=== PATIENT | male | born 1985 | race African-American/Black ===

== ENCOUNTER 2025-02-08 20:20 | Emergency (ER) | payer OTHER ==
[~2025-02-08] VITALS: Ht 182.9 cm; Wt 181.4 kg
[2025-02-08] MEDS ORDERED: HYDROcodone 7.5-APAP 325 TAB PO ONE (21:20)
[2025-02-08] MEDS ORDERED: Ketorolac Tromethamine 30mg Vial IM ONE (21:20)
[2025-02-08] MEDS ORDERED: Trimethoprim/Sulfamethoxazole DS Tab PO ONE (21:55)
[2025-02-08] MEDS ORDERED: IBU600 M1 PO (22:13)
[2025-02-08] MEDS ORDERED: BACTRIM DS TAB1 EAC1 PO (22:13)
[2025-02-08] MEDS ORDERED: FAMO20 PO (22:13)
== END 2025-02-08 22:34 | disposition home or self-care (01) ==
LOC: ER 20:20
DX: L03.221 Cellulitis of neck (principal); L02.11 Cutaneous abscess of neck
CPT/HCPCS: 96372; 99282-25; A9270; J1885